=== PATIENT | male | born 1985 | race Caucasian/White ===

== ENCOUNTER 2018-04-07 16:12 | Emergency (ER) | payer BC ==
[~2018-04-07] VITALS: Ht 165.1 cm; Wt 71.2 kg
[2018-04-07 17:17] VITALS: BP 123/81
[2018-04-07 17:43] LABS: Urine Bacteria NONE SEEN /hpf (None Seen); Urine Blood Negative /uL (Negative); Urine Mucus FEW (None Seen); Urine WBC 3 /hpf (0 - 3)
[2018-04-07] MEDS ORDERED: IBUPROFEN 600 MG TAB PO ONE (18:00)
== END 2018-04-07 19:11 | disposition home or self-care (01) ==
LOC: ER 16:21
DX: K40.90 Unilateral inguinal hernia, without obstruction or gangrene, not specified as recurrent (principal); Z88.0 Allergy status to penicillin; Z88.8 Allergy status to other drugs, medicaments and biological substances
CPT/HCPCS: 76870; 81001

== ENCOUNTER 2018-07-31 19:00 | Emergency (ER) | payer BC, OTHER ==
[~2018-07-31] VITALS: Ht 167.6 cm; Wt 77.1 kg
[2018-07-31 21:57] VITALS: BP 131/87
== END 2018-07-31 22:53 | disposition home or self-care (01) ==
LOC: ER 19:00
DX: S62.511A Displaced fracture of proximal phalanx of right thumb, initial encounter for closed fracture (principal); Z88.1 Allergy status to other antibiotic agents; W03.XXXA Other fall on same level due to collision with another person, initial encounter; Y93.89 Activity, other specified; Y92.89 Other specified places as the place of occurrence of the external cause; Y99.0 Civilian activity done for income or pay
CPT/HCPCS: 29125; 73140